=== PATIENT | female | born 1990 | race Caucasian/White ===

== ENCOUNTER 2019-04-25 18:43 | Emergency (ER) | payer OTHER ==
[~2019-04-25] VITALS: Ht 162.6 cm; Wt 72.6 kg
[2019-04-25] MEDS ORDERED: DOLOGEN CAPLET1 EACH PO (21:58)
[2019-04-25] MEDS ORDERED: ZITHROMAX500 MG PO (21:58)
[2019-04-25] MEDS ORDERED: TUSNEL LIQUID178 ML PO (21:58)
== END 2019-04-25 22:29 | disposition home or self-care (01) ==
LOC: ER 18:43
DX: J06.9 Acute upper respiratory infection, unspecified (principal); B96.0 Mycoplasma pneumoniae [M. pneumoniae] as the cause of diseases classified elsewhere